=== PATIENT | female | born 1940 | race African-American/Black ===

== ENCOUNTER 2020-06-23 14:12 | Inpatient (IN) | payer OTHER ==
[~2020-06-23] VITALS: Ht 165.1 cm; Wt 69.2 kg
[2020-06-23 14:13] VITALS: BP 128/79
[2020-06-23 15:40] LABS: ABSOLUTE NEUTROPHILS 8.6 thou/uL (1.4-8.2); BASOPHILS 0.1 % (0.0-2.0); HEMATOCRIT 53.4 % (37.0-47.0); HEMOGLOBIN 17.4 gm/dL (12.0-15.0); LYMPHOCYTES 3.6 % (24.0-44.0); MCH 29.7 pg (26.0-34.0); MCHC 32.7 g/dL (28.0-37.0); MONOCYTES 10.2 % (1.0-8.0); PLATELET COUNT 283 thou/uL (150-400); POLYS 86.1 % (36.0-66.0); RBC 5.86 mil/uL (4.20-5.00); RDW 14.7 % (10.5-14.5)
[2020-06-23 15:55] LABS: ANION GAP 9 mmol/L (7-16); BUN 49 mg/dL (7-18); CALCIUM 11.5 mg/dL (8.5-10.1); CHLORIDE 106 mmol/L (98-107); CO2 25 mmol/L (21-32); CREATININE 2.2 mg/dL (0.6-1.0); GLUCOSE 174 mg/dL (74-106); POTASSIUM 4.7 mmol/L (3.5-5.1); SODIUM 140 mmol/L (136-145)
[2020-06-23 16:04] LABS: MAGNESIUM 2.2 mg/dL (1.8-2.4); TROPONIN-I <0.06 ng/mL (<0.06)
[2020-06-23 16:14] LABS: APTT 26.1 Seconds (24.5-32.8); INR 1.1; PROTIME 11.3 Seconds (9.3-11.4)
[2020-06-23] MEDS ORDERED: ASA81BEC PO (17:35)
[2020-06-23] MEDS ORDERED: NORVASC 2.5 MG2.5 M1 PO (17:35)
[2020-06-23] MEDS ORDERED: TYLENOL325 M1 PO (17:35)
[2020-06-23] MEDS ORDERED: PLAVIX 75 MG TA75 MG PO (17:37)
[2020-06-23] MEDS ORDERED: FLOMAX0.4 MG PO (17:37)
[2020-06-23] MEDS ORDERED: VITAMIN D31250 MC1 PO (17:37)
[2020-06-23] MEDS ORDERED: DEPAKOTE ER250 MG PO (17:37)
[2020-06-23] MEDS ORDERED: MILK OF MA400 MG/5 M PO (17:38)
[2020-06-23] MEDS ORDERED: TOPROL XL100 MG PO (17:38)
[2020-06-23 18:20] LABS: URINE BLOOD TRACE (Negative); URINE CLARITY CLEAR; URINE COLOR YELLOW; URINE GLUCOSE-RANDOM* NEGATIVE (Negative); URINE KETONES TRACE (Negative); URINE LEUKOCYTES-REFLEX NEGATIVE (Negative); URINE NITRITE-REFLEX NEGATIVE (Negative); URINE PROTEIN (DIPSTICK) 3+ (Negative); URINE SPECIFIC GRAVITY >= 1.030 (1.005-1.035)
[2020-06-23 18:22] LABS: URINE BILIRUBIN NEGATIVE (Negative)
[2020-06-23 18:23] LABS: ICTOTEST (BILI CONFIRMATORY) Negative (Negative)
[2020-06-23 18:26] LABS: SQUAMOUS 0-3 Few /LPF (0-3); URINE WBC-REFLEX 0-5 Rare /HPF (0-5)
[2020-06-23 18:27] LABS: BACTERIA-REFLEX 1-9 Few /HPF (None Seen); CASTS None Seen /LPF (None Seen); CRYSTALS None Seen /LPF (None Seen); URINE RBC 0-2 Rare /HPF (0-2)
--- NOTE | 2020-06-23 20:25 | NUR ---
ATTEMPTED TO CALL REPORT 2024, REPORTED RN IN PT ROOM WILL CALL BACK WITHIN 5 MINUTES
[2020-06-23 20:49] VITALS: BP 129/75
--- NOTE | 2020-06-24 02:41 | NUR ---
PT ARRIVED ON THE UNIT THIS SHIFT. ALERT TO SELF. ON 2L OF O2. IV INTACT WITH FLUIDS INFUSING. P INCONTINENT OF BLADDER. DRY SKIN NO WOUNDS. LUNGS COARSE. VITAL SIGNS STBLE NO FEVER. LEFT SIDED WEAKNESS. NO FURTHER SIGNS OF DISCOMFORT. ISOLATION MAINTAINED. FALL PREC IN PLACE AND WILL CONT WITH POC TILL EOS.
[2020-06-24 03:13] LABS: HEMATOCRIT 51.6 % (37.0-47.0); HEMOGLOBIN 16.9 gm/dL (12.0-15.0); MCH 29.6 pg (26.0-34.0); MCHC 32.7 g/dL (28.0-37.0); MCV 90.4 fL (80.0-100.0); RBC 5.7 mil/uL (4.20-5.00); RDW 14.3 % (10.5-14.5); WBC 11.1 thou/uL (4.0-11.0)
[2020-06-24 03:24] LABS: CALCIUM 10.9 mg/dL (8.5-10.1); CREATININE 1.5 mg/dL (0.6-1.0); POTASSIUM 4.3 mmol/L (3.5-5.1)
[2020-06-24 09:02] VITALS: BP 138/87
[2020-06-24 14:49] VITALS: BP 142/87
--- NOTE | 2020-06-24 15:15 | NUR ---
APPEARS TO BE RESTING QUIETLY IN BED WITH EYES CLOSED ON INITIAL APPROACH THIS AM AT APPROX 0740-ROUSABLE TO VERBAL STIMULI-MINIMALLY VERBAL WHEN QUESTIONS ASKED BUT WILL OFFER 1-2 WORD RESPONSES-ATTEMPTED TO ASSIST TO CHAIR AT BEDSIDE THIS AM FOR BREAkFAST AND NOTED TO HAVE SIGNIFCANT LEFT SIDED WEAKNESS-WHEN ASKED IF SHE COULD STAND TO TRANSFER TO CHAIR WITH GAIT BELT AND ASSIST STATES "NO-I DON'T-I CAN'T"DID EAT APPROX 20-25 PERCENT OF BOTH BREAKFAST AND LUNCH WHEN FEED BY STAFF-AFTER THIS CLOSES MOUTH TIGHTLY AND REFUSES TO OPEN. O2 ON AT 2 LITERS PER NC-SATS 99 PERCENT. AFEBRILE-LUNG SOUNDS CLEAR. NO COUGH NOTED OR REPORTED. PERIPHERAL IV TO UPPER RIGHT ARM WRAPPED IN COBAN INFUSING D51/2NS AT 100ML/HR. DENIES C/O PAIN/DISCOMFORT. AFFECT CONSTRICTED-PT DOES NOT RESPOND WHEN ASKED IF SHE KNEW WHERE SHE WAS-TURNS HEAD AWAY ON PILLOW STATING "I'M TIRED I WANT TO SLEEP" BREAKFAST AND IS NOTED TO HAVE SIGNIFICANT WEAKNE
[2020-06-24 20:10] VITALS: BP 144/96
[2020-06-25] VITALS: BP 145/95
[2020-06-25 04:52] LABS: ABSOLUTE NEUTROPHILS 7.5 thou/uL (1.4-8.2); BASOPHILS 0.2 % (0.0-2.0); HEMATOCRIT 48.7 % (37.0-47.0); HEMOGLOBIN 15.7 gm/dL (12.0-15.0); LYMPHOCYTES 10.1 % (24.0-44.0); MCH 29.4 pg (26.0-34.0); MCHC 32.2 g/dL (28.0-37.0); MCV 91.3 fL (80.0-100.0); MONOCYTES 8.1 % (1.0-8.0); PLATELET COUNT 243 thou/uL (150-400); POLYS 81.6 % (36.0-66.0); RBC 5.33 mil/uL (4.20-5.00); RDW 14.5 % (10.5-14.5); WBC 9.2 thou/uL (4.0-11.0)
[2020-06-25 05:13] LABS: ALBUMIN 2.6 g/dL (3.4-5.0); CALCIUM 10.4 mg/dL (8.5-10.1); CREATININE 1.3 mg/dL (0.6-1.0); PHOSPHORUS 1.6 mg/dL (2.6-4.7); TOTAL BILIRUBIN 0.5 mg/dL (0.2-1.0)
[2020-06-25 08:00] VITALS: BP 145/95
--- NOTE | 2020-06-25 09:06 | NUR ---
PROGRESS IVF'S INFUSING ORDERED, ATTEMPTED TO PLACE CATHETER PER ORDER PT PT STRUGGLED AND REFUSED LEFT INSERTED FOR AWHILE TO SEE IF IT WAS IN CORRECTLY THEN PT WOULDN'T ALLOW ME TO REMOVE. SLEPT REST OF NIGHT CONTINUE POC.
[2020-06-25 12:20] VITALS: BP 123/67
[2020-06-25 12:25] VITALS: BP 145/95
--- NOTE | 2020-06-25 14:37 | NUR ---
1435 RESUMMED CARE FROM OVERNIGHT SHIFT THIS AM, PATIENT IN ROOM QUIET AND SLEEPING. PATIENT HAS AN IV D5 RUNNING AT 75 ML/HR PATIENTS IN RIGHT FOREARM. CATHETER WAS REMOVED BECAUSE IT WAS LEAKING URINE AND PATIENT BED SOAKED. WE CLEANED PATIENT UP AND CHANGED LINENS. PATIENTS ABDOMEN SOFT FLAT BOWEL SOUNDS PRESENT. PATIENTS LUNGS CLEAR PATIENT DAUGHTERS CALLED AND WANTED AN UPDATE OF PATIENT. PATIENTS DAUGHTER JOSE M CHAU HER POWER OF COMMUNITY ARTS OFFICER WAS UPSET THAT NO ONE TOLD HER THE PATIENT HAD COVID. SHE WOULD LIKE FOR THE DOCTOR OR DRINK WAITER TO CALL HER WITH AN UPDATE AND THE PLANS OR PATIENT. PATIENT IS MOST TIME IS NONVERBAL AND CANNOT TELL YOU ABOUT SI/HI/AH/VH AT PRESENT. DR BRANNON CAME TO SEE PATIENT AND STATES SHE LOOKS BETTER THEN YESTERDAY. WILL CONTINUE TO MONITOR PATIENT FOR SAFETY AND BEHAVIORS.
[2020-06-25 16:45] VITALS: BP 137/75
[2020-06-25 18:52] VITALS: BP 109/61
[2020-06-26 03:53] LABS: ABSOLUTE NEUTROPHILS 8.7 thou/uL (1.4-8.2); BASOPHILS 0.2 % (0.0-2.0); EOSINOPHILS 0.2 % (0.0-3.0); HEMATOCRIT 43.1 % (37.0-47.0); HEMOGLOBIN 14.4 gm/dL (12.0-15.0); LYMPHOCYTES 5.9 % (24.0-44.0); MCH 30.3 pg (26.0-34.0); MCHC 33.3 g/dL (28.0-37.0); MCV 90.9 fL (80.0-100.0); PLATELET COUNT 235 thou/uL (150-400); POLYS 91.7 % (36.0-66.0); RBC 4.74 mil/uL (4.20-5.00); RDW 14.2 % (10.5-14.5); WBC 9.5 thou/uL (4.0-11.0)
[2020-06-26 04:05] VITALS: BP 142/85
[2020-06-26 04:13] LABS: ALBUMIN 2.4 g/dL (3.4-5.0); CALCIUM 10.1 mg/dL (8.5-10.1); CREATININE 1.2 mg/dL (0.6-1.0); DIRECT BILIRUBIN 0.1 mg/dL (<0.1-0.2); MAGNESIUM 1.8 mg/dL (1.8-2.4); PHOSPHORUS 2.1 mg/dL (2.6-4.7); POTASSIUM 4.6 mmol/L (3.5-5.1); TOTAL BILIRUBIN 0.8 mg/dL (0.2-1.0); TOTAL PROTEIN 7.4 g/dL (6.4-8.2)
--- NOTE | 2020-06-26 05:19 | NUR ---
PT LYING IN BED. INCONTINENT. NO PAIN. FREQUENT OBSERVATION.
[2020-06-26 07:00] VITALS: BP 126/70
--- NOTE | 2020-06-26 07:14 | HC ---
[facility] [place] [address] CONSULTATION Name: JEANE HADDAD Room #: [facility] ADM IN M.R.#: [id number] Admission: 06/23/20 Attend Phys: Pierre Sutton MD Discharge: Date of : 38 Report #: [id number] THIS REPORT FOR: cc: Juan Carlos Albarado MD, Ramilo MD Barry,Elmer Lr MD ~ DATE OF SERVICE: 06/25/2020 INFECTIOUS DISEASE CONSULTATION ATTENDING PHYSICIAN: Dr. Sutton. REASON FOR EVALUATION: COVID-19 infection. HISTORY OF SUBJECTIVE: Chart reviewed, patient examined. This is an 79-year-old woman with history of previous stroke, left sided hemiplegia, who is disabled and lives in a facility. She was noted to be progressively encephalopathic with some dyspnea. Had been tested for COVID on 06/15/2020, which was positive at that point and due to concerns about her deteriorating status, she was transitioned to the Emergency Room for evaluation. Chest x-ray did note initially no cardiopulmonary process. Lactic acid was elevated at 2.7. Urinalysis was generally unremarkable. She has been afebrile. On questioning, she is not able to give too many details of the history. She is maintained on supplemental oxygen 2 liters and that has been stable. She was empirically placed on therapy with ceftriaxone. ALLERGIES: None known. CURRENT MEDICATIONS: Include divalproex, famotidine, methylprednisolone, aspirin, metoprolol, tamsulosin, and ceftriaxone. PAST MEDICAL HISTORY: As described above, previous history of stroke, left sided hemiparesis, delusional disorder. SOCIAL HISTORY: Unknown. FAMILY HISTORY: Noncontributory. REVIEW OF SYSTEMS: Not reliably obtained. PHYSICAL EXAMINATION: GENERAL: She appears chronically ill. She does speak only in brief sentences, primarily yes/no questions. She is awake, appears chronically ill, undernourished, mild distress. VITAL SIGNS: Temperature 98.4, pulse 58, respirations 18, blood pressure [facility] [address] [place] [address] CONSULTATION Name: JEANE HADDAD Room #: [address] [place] [address] [place] ..#: [id number] Admission: 06/23/20 Attend Phys: Pierre Sutton MD Discharge: Date of : 38 Report #: [id number] 144/96. SKIN: Warm. HEENT: Normocephalic. Extraocular muscles intact. NECK: Supple. LUNGS: Diminished breath sounds. HEART: Regular. ABDOMEN: Mildly distended, otherwise soft. There are no apparent tenderness. GENITOURINARY AND RECTAL: Deferred. LABORATORY DATA: This morning electrolytes: Sodium 144, potassium 4.0, chloride 111, bicarbonate is 22, anion gap of 11, BUN and creatinine 34 and 1.3, glucose of 120. AST of 42, ALT is 32, albumin 2.6, total protein of 8.0, estimated GFR 48. CBC: White count of 9.2, H and H 15.7 and 48.7, platelets of 243. Abdominal plain film shows nonspecific bowel gas pattern. Lactic acid, most recently 1.4. Urinalysis unremarkable. ASSESSMENT: COVID-19 infection, complicated by respiratory failure. It is reasonable to initiate therapy with clinical likelihood of worsening. I think it is significant given her overall disease burden and her lack of reserve. She does clinically monitor expectantly oxygen support as needed. We will need to initiate approach to optimize her nutritional status as well. I suspect there is some malnourishment. <ELECTRONICALLY SIGNED> By: Elmer Meredith MD 06/26/20 0714 0826 1055 Elmer Meredith MD /nt
--- NOTE | 2020-06-26 07:27 | EKG ---
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: ricardo : 1940 Requested By: Alberto Hayden Order Number: [id number] MD: Jayden Neumann Measurements Intervals Wana Rate: 83 P: KS: QRS: -26 QRSD: 79 T: 85 QT: 375 QTc: 441 Interpretive Statements Atrial fibrillation Inferior infarct, old No previous ECG available for comparison Electronically Signed On 06-26-2020 7:27:14 HYDRAULIC ROCKBREAKER OPERATOR by Jayden Neumann [email or web address] <ELECTRONICALLY SIGNED> By: Jayden Neumann MD, [facility] 06/26/20 0727 1446 1446 Jayden Neumann MD, FACC /EPI
--- NOTE | 2020-06-26 12:19 | NUR ---
Case openned to follow for dc planning. 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 She has hx of CVA and recent Covid + on 06-15-20. Medical Referral Coordinator spoke with the pt's dtr/dpoa Neeru Wei as well as the liason from [facility]. Family upset as the facility had neglected to tell them the pt has tested positive until family did a window visit and noted her decline. Neeru reports that the pt is normally able to gait with a rwalker and interact with family. They last saw her during a patio visit in December and she was able to walk to the patio with her rwalker. Neeru is the primary dpoa and pt's son Armando and dtr Leslie are alternate agents. [facility] is faxing a copy of the document for our chart. Pt is a full code. Nursing updated as well. The pt is currently in enhanced ISO and weaning off o2. She is working with PT/Ot but very weak. Will ask [facility]. Dtr in agreement and considering alternate nh placement in the future. Support provided. Dc plan at this time is to return to SNF at [facility] when medically stable. Dc materials planner to fax an update to [facility]. They are holding the pt's room on their covid unit and can accept her back. The pt is off ivf and getting remdesivir. Cm role introduced and unit phone number provided to the dtr. will follow.
[2020-06-26 16:40] VITALS: BP 121/70
--- NOTE | 2020-06-26 16:54 | NUR ---
PT CARE ASSUMED AT 0700. A&Ox4. COVID POSITIVE. REMDESIVIER GIVEN. IV PATENT WITH NO REDNESS OR EDEMA, SALINE LOCKED. UP TO THE SIDE OF THE BED WITH PT/OT. PT CONTINUES TO BE WEAK ON HER LET SIDE. LUNGS SOUND COARSE. WE WERE ABLE TO WEAN PT OFF OF O2 AND SHE CONTINUES TO SAT AT 98% ON ROOM AIR. FALL PROTOCOL IN PLACE. CALL LIGHT IN REACH. MULTIPLE BM'S TODAY. WILL CONTINUE TO MONITOR.
--- NOTE | 2020-06-26 16:54 | NUR ---
FAXED CLINICAL UPDATE TO [facility] RECEIVED CONFIRMATION. DP TO FOLLOW.
[2020-06-26 19:57] VITALS: BP 129/75
--- NOTE | 2020-06-27 03:08 | NUR ---
PATIENT INCONTINENT OF BOWEL AND BLADDER, HAS TRIED TO GET OUT BED TO "GO BACK TO MY ROOM", CAN ONLY GET SO FAR PUTTING ONE FOOT ON FLOOR, APPRECIATES HELP GETTING FEET BACK IN BED AND BEING TURNED ON SIDE. IV ANTIBIOTIC INFUSING THROUGH PERIPHERAL LEFT AC WITHOUT INCIDENT. JUST A FEW SIPS OF WATER OUTSIDE OF WATER GIVEN WITH MEDS. RAMBLING DISCUSSION OF WHAT WE SHOULD DO IN LIGHT OF COVID AND SOCIAL DISTANCING LED TO CONCLUSION THAT BOTH OF US SHOULD REMEMBER AND INTERACT WITH OUR FAMILIES MUCH WE CAN AND NOT FORGET EACH OTHER DURING THESE TRYING TIMES.
[2020-06-27 04:35] VITALS: BP 141/75
--- NOTE | 2020-06-27 17:16 | NUR ---
PT. RESTING MOST OF THE DAY AND CALM. ALL MEDICATIONS PROVEIDED AND TAKEN . A COUPLE OF TIMES SHE WOULD GET UP OUT OF BED AND COME TO DOOR AREA AND JUST STARE AT STAFF. WOULD TRY TO REORIENT HER BACK TO BED AND PROVIDE REORIENTATION TO SITUATION.
[2020-06-27 19:46] VITALS: BP 145/84
--- NOTE | 2020-06-28 03:55 | NUR ---
ASSESSMENT DOCUMENTED.PT BEEN RESTING IN O ACUTE DISTRESS.A/O TO SELF.FOLLOWS SIMPLE COMMANDS.INCONTINENT OF BLADDER.NO SUCCESS TO LABS DRAW YET WILL NOTIFY DAY RN TO HAVE LABS TRY AGAIN.IV ANTIBIOICS INFUSED.NO CONCERNS NOTED.
[2020-06-28 04:01] VITALS: BP 150/78
[2020-06-28 08:20] VITALS: BP 137/76
--- NOTE | 2020-06-28 11:21 | NUR ---
PT CARE ASSUMED AT 0700. PT ORIENTED TO SELF AND PERIODICALLY TIME. MEDICATIONS ONE AT A TIME WITH LARGE AMOUNTS OF CLEAR LIQUIDS. INCONTINENT TO BOWEL AND BLADDER. DEMENTIA HISTORY. LEFT SIDED WEAKNESS. MINIMAL COMMUNICATION FROM PATIENT WITH STAFF. WILL COMMUNICATE NEEDS. SPOKE WITH DAUGHTER ON THE PHONE, UPDATE GIVEN. IV PATENT WITH NO REDNESS OR EDEMA, SALINE LOCKED. 3/4 DOSE OF REMDESIVIR ADMINISTERED. PENDING DISCHARGE FOR TOMORROW 06/29. FALL PROOCOL IN PLACE. CALL LIGHT IN REACH. WILL CONTINUE TO MONITOR.
--- NOTE | 2020-06-28 12:01 | NUR ---
Case discussed with the care team. Possible dc back to [facility] tomorrow after 4th and final dose of remdesivir. Rn updated dtr Neeru. [facility] aware and can accept the pt back tomorrow. Will ask for chart copy.
--- NOTE | 2020-06-28 14:12 | NUR ---
FAXED CLINICAL UPDATE TO [facility] SPOKE WITH JOSE IN ADM SHE RECEIVED UPDATE. DP TO FOLLOW.
--- NOTE | 2020-06-28 15:27 | NUR ---
Message left for dtr/dpoa Neeru regarding possible dc back to SNF at [facility] tomorrow after her 4th dose of remdesivir. Message rec'd from dtr Leslie with questions about her rehab at [facility]. Questions answered. The unit RN has also updated family today. [facility] liason aware of her possible return tomorrow. The pt is being seen by therapy and will continue to rehab under her skilled medicare benefit on their covid unit. Will follow.
[2020-06-28 17:30] VITALS: BP 122/88
[2020-06-29 05:58] LABS: ALBUMIN 2.7 g/dL (3.4-5.0); CALCIUM 10.2 mg/dL (8.5-10.1); CREATININE 1.3 mg/dL (0.6-1.0); DIRECT BILIRUBIN 0.2 mg/dL (<0.1-0.2); PHOSPHORUS 1.7 mg/dL (2.5-4.9); POTASSIUM 3.6 mmol/L (3.5-5.1); TOTAL BILIRUBIN 0.5 mg/dL (0.2-1.0); TOTAL PROTEIN 7.4 g/dL (6.4-8.2)
[2020-06-29 08:08] VITALS: BP 115/59
--- NOTE | 2020-06-29 08:09 | NUR ---
PROGRESS PHONE CALL FROM [facility] AND PHONE CALL FROM DPOA REGARDING PT'S HOME KATIUSKA FROM A REPORTED THAT THE [facility] HAD CONCERNS REGARDING THE ABILITY OF PT TO CARE FOR SELF, THE AGENCY HAS CONTEMPLATED HOTLINING THE PATIENT. PATRICIA THE POA REPORTED THAT SHE JUST FINISHED CLEANING HER HOUSE AND IT WAS FULL OF WINE AND LIQUOR BOTTLES, DOG FECES AND POSSIBLY HUMAN FECES. PT HAS A DOG THAT IS LARGE AND SHE IS UNABLE TO CARE FOR OR FIND ANYONE ELSE TO CARE FOR IT. PT WAS ASKING FOR MARIJUANA. SHE GETS VERY ANGRY IF SHE DOESN'T GET HER WAY AND YELLS AT PEOPLE. SHE YELLED AT ME BECAUSE HER IV PUMP BEEPED BUT I DIDN'T REACT AND SHE STOPPED YELLING. CONTINUE POC,
--- NOTE | 2020-06-29 08:17 | NUR ---
PROGRESS PT ALERT AND PLEASANT ATE A BOXED LUNCH SOME SALTINES SHE WANTS CHICKEN NOODLE SOUP. IV INFILTRATED BUT SHE WAS SLEEPING SO I JUST TURNED THE FLUIDS OFF NO FURTHER SWELLING OR DISCOMFORT NOTED. POSSIBLE TRANSFER BACK TO [facility].
[2020-06-29] MEDS ORDERED: METOPROLOL SUCC50 MG PO (11:48)
[2020-06-29] MEDS ORDERED: HEPARIN SO5000 UNIT/ SUBQ (11:48)
[2020-06-29] MEDS ORDERED: ACEROLA C500 MG PO (11:48)
[2020-06-29] MEDS ORDERED: VITAMIN B-1100 M2 PO (11:48)
[2020-06-29] MEDS ORDERED: PEPCID20 MG PO (11:48)
[2020-06-29] MEDS ORDERED: PREDNISONE 5 MG5 MG PO (11:48)
--- NOTE | 2020-06-29 14:05 | NUR ---
PT DISCHARGING TODAY TO [facility] FAXED DC ORDERS/SUMMAARY TO FACILITY SPOKE WITH TRINIDAD IN ADM SHE RECEIVED ORDERS. TRANSPORT ARRANGED WITH [facility] FOR [id number] LEFT MSG WITH PT'S SON (NIYAH) AND DTR (JOSE M) OF DC AND TIME OF TRANSPORT. UNIT NOTIFIED AND CHART COPY PER [place],S. RN TO CALL REPORT TO [phone].
--- NOTE | 2020-06-29 14:08 | NUR ---
Patient being discharged back to [facility] today. D/C order in at 0850. Confirmed with DCP that discharge orders have been faxed and patient accepted to [facility]. Planned pickup time for transportation is at [phone] with [facility]. Notified daughter Neeru at [phone] as could not reach 1st contact son Armando Rodriguez at [phone] of above. Neeru was with patient and grateful for care given and will follow with Mom at her discharge destination.
--- NOTE | 2020-06-29 19:03 | NUR ---
PT IS AOX1-2, FORGETFUL/CONFUSED. PT VSS, NO C/O PAIN. TRANSFERRED TO REHAB FACILITY, TRANSFERRED PER W/C [facility]. BELONGINGS PACKED AND SENT HOME.
== END 2020-06-29 14:02 | DRG 871 ==
LOC: ER 14:12 → SICU 18:13 → EROBS 18:13 → SICU 20:44 → 4W 06-28 19:50
PROVIDERS: Emergency Medicine; Internal Medicine; Specialist; ADMIT Hospitalist; ATTEND Hospitalist
PROC: XW033E5 Introduction of Remdesivir Anti-infective into Peripheral Vein, Percutaneous Approach, New Technology Group 5 (ICD-10-PCS; principal; 2020-06-25)
DX: A41.9 Sepsis, unspecified organism (principal); U07.1 COVID-19; J96.01 Acute respiratory failure with hypoxia; G93.41 Metabolic encephalopathy; N17.9 Acute kidney failure, unspecified; E46 Unspecified protein-calorie malnutrition; I69.354 Hemiplegia and hemiparesis following cerebral infarction affecting left non-dominant side; E86.0 Dehydration; R62.7 Adult failure to thrive; R53.81 Other malaise; F22 Delusional disorders; R19.7 Diarrhea, unspecified; Z68.25 Body mass index [BMI] 25.0-25.9, adult
CPT/HCPCS: 10040; 15000